=== PATIENT | male | born 1950 | race Caucasian/White ===

== ENCOUNTER → 2020-12-08 | Outpatient (CLI) | payer OTHER ==
[~2020-12-08] MED LIST: ACCU-CHEK FAST1 EACH MC; ALLOPURINOL100 MG PO; AMLODIPINE BESYL5 MG PO; ASPIRIN81 MG PO; BUSPIRONE HCL5 MG PO; BYSTOLIC10 MG PO; CLARITIN 10MG T10 MG PO; CLOPIDOGREL75 MG PO; CYANOCOBAL1000 MCG/1 INJ; EFFEXOR XR 150150 MG PO; FLUCONAZOLE200 MG PO; FOLIC ACID 1 MG1 MG PO; GABAPENTIN600 MG PO; GLUCOTROL XL 22.5 MG PO; ISOSORBIDE MONO30 MG PO; JANUVIA100 MG PO; LASIX20 MG PO; MECLIZINE HCL25 MG PO; MYCOSTATIN100000 UTS PO; NITROSTAT0.4 MG SL; ONDANSETRON ODT8 MG PO; OXYCODONE-ACET1 EACH PO; POTASSIUM CHLO10 ME1 PO; PRAVASTATIN SOD10 MG PO; RIZATRIPTAN10 MG PO; ROBAXIN 750 MG750 MG PO; ROPINIROLE HCL3 MG PO; TRAZODONE HCL150 MG PO; ZANAFLEX 4 MG TA4 MG PO
== END ==
LOC: HEART 5 08:13
DX: R42 Dizziness and giddiness (principal); R94.39 Abnormal result of other cardiovascular function study
CPT/HCPCS: 78452; 93306; A9502; J2785

== ENCOUNTER → 2021-01-01 | Outpatient (CLI) | payer OTHER ==
[2021-01-01 15:02] LABS: HEMOGLOBIN 12.4 gm/dl (14.0-17.5); RED BLOOD COUNT 4.13 M/UL (4.20-5.50); WHITE BLOOD COUNT 8.4 K/UL (4.5-11.0)
[2021-01-01 15:18] LABS: BUN/CREATININE RATIO 12 (0-10)
== END ==
LOC: LAB 13:47
PROVIDERS: Internal Medicine Interventional Cardiology
DX: Z01.810 Encounter for preprocedural cardiovascular examination (principal); I25.10 Atherosclerotic heart disease of native coronary artery without angina pectoris
CPT/HCPCS: 36415; 80048; 85025

== ENCOUNTER 2021-01-05 10:07 | Outpatient (CLI) | payer OTHER ==
[~2021-01-05] VITALS: Ht 180.3 cm; Wt 102.3 kg
[2021-01-05] MEDS ORDERED: AMLODIPINE BESYL5 MG PO (11:12)
[2021-01-05] MEDS ORDERED: BYSTOLIC10 MG PO ×2 (11:13→11:23)
[2021-01-05] MEDS ORDERED: ACCU-CHEK FAST1 EACH MC (11:13)
[2021-01-05] MEDS ORDERED: JANUVIA100 MG PO (11:13)
[2021-01-05] MEDS ORDERED: CLOPIDOGREL75 MG PO (11:13)
[2021-01-05] MEDS ORDERED: POTASSIUM CHLO10 ME1 PO (11:14)
[2021-01-05] MEDS ORDERED: RIZATRIPTAN10 MG PO (11:14)
[2021-01-05] MEDS ORDERED: CYANOCOBAL1000 MCG/1 INJ (11:15)
[2021-01-05] MEDS ORDERED: FLUCONAZOLE200 MG PO (11:15)
[2021-01-05] MEDS ORDERED: ROPINIROLE HCL3 MG PO (11:15)
[2021-01-05] MEDS ORDERED: PRAVASTATIN SOD10 MG PO (11:15)
[2021-01-05] MEDS ORDERED: GLUCOTROL XL 22.5 MG PO (11:16)
[2021-01-05] MEDS ORDERED: BUSPIRONE HCL5 MG PO (11:16)
[2021-01-05] MEDS ORDERED: MYCOSTATIN100000 UTS PO (11:16)
[2021-01-05] MEDS ORDERED: CLARITIN 10MG T10 MG PO (11:17)
[2021-01-05] MEDS ORDERED: OXYCODONE-ACET1 EACH PO (11:17)
[2021-01-05] MEDS ORDERED: GABAPENTIN600 MG PO (11:17)
[2021-01-05] MEDS ORDERED: MECLIZINE HCL25 MG PO (11:18)
[2021-01-05] MEDS ORDERED: ALLOPURINOL100 MG PO (11:18)
[2021-01-05] MEDS ORDERED: FOLIC ACID 1 MG1 MG PO (11:18)
[2021-01-05] MEDS ORDERED: ASPIRIN81 MG PO (11:19)
[2021-01-05] MEDS ORDERED: EFFEXOR XR 150150 MG PO (11:19)
[2021-01-05] MEDS ORDERED: LASIX20 MG PO (11:20)
[2021-01-05] MEDS ORDERED: ONDANSETRON ODT8 MG PO (11:21)
[2021-01-05] MEDS ORDERED: TRAZODONE HCL150 MG PO (11:22)
[2021-01-05] MEDS ORDERED: ZANAFLEX 4 MG TA4 MG PO (11:22)
[2021-01-05] MEDS ORDERED: ROBAXIN 750 MG750 MG PO (11:25)
[2021-01-06 03:18] LABS: HEMOGLOBIN 12.7 gm/dl (14.0-17.5); RED BLOOD COUNT 4.22 M/UL (4.20-5.50); WHITE BLOOD COUNT 8.7 K/UL (4.5-11.0)
[2021-01-06 03:56] LABS: BUN/CREATININE RATIO 11 (0-10)
[2021-01-06] MEDS ORDERED: ISOSORBIDE MONO30 MG PO (10:14)
[2021-01-06] MEDS ORDERED: NITROSTAT0.4 MG SL (10:14)
== END 2021-01-06 11:28 | disposition home or self-care (01) ==
LOC: CATH 10:07 → PROG CARE 17:12 → CATH 01-06 11:28
PROVIDERS: Internal Medicine Interventional Cardiology
DX: I25.118 Atherosclerotic heart disease of native coronary artery with other forms of angina pectoris (principal); I10 Essential (primary) hypertension; E78.5 Hyperlipidemia, unspecified; E11.9 Type 2 diabetes mellitus without complications; Z79.82 Long term (current) use of aspirin; Z79.02 Long term (current) use of antithrombotics/antiplatelets; Z79.84 Long term (current) use of oral hypoglycemic drugs; Z79.899 Other long term (current) drug therapy; Z87.891 Personal history of nicotine dependence
CPT/HCPCS: 36415; 80048; 82550; 82553; 82962; 85025; 85347; 85610; 93005; 99152; 99153; C1725; C1769; C1874; C1887; C1894; C9600; J0461; J1644; J2250; J3010; J3246; J3420; J7040; Q9967